=== PATIENT | male | born 1960 | race African-American/Black ===

== ENCOUNTER 2024-03-01 12:58 | Inpatient (IN) | payer OTHER ==
[2024-03-01 13:56] VITALS: BMI 32.5
[2024-03-01] MEDS ORDERED: LOPERAMIDE HCL 2 MG CAPSULE PO PRN (14:12)
[2024-03-01] MEDS ORDERED: ACETAMINOPHEN 325 MG TABLET (FP) PO PRN (14:12)
[2024-03-01] MEDS ORDERED: NICOTINE POLACRILEX 2 MG LOZENGE BC PRN (14:12)
[2024-03-01] MEDS ORDERED: BENZONATATE 200 MG CAPSULE PO PRN (14:12)
[2024-03-01] MEDS ORDERED: NICOTINE POLACRILEX 2 MG GUM BUC PRN (14:12)
[2024-03-01] MEDS ORDERED: MAG HYDROX/AL HYDROX/SIMETH 30 ML UNIT-DOSE CUP PO PRN (14:12)
[2024-03-01] MEDS ORDERED: IBUPROFEN 400 MG TABLET (FP) PO PRN (14:12)
[2024-03-01] MEDS ORDERED: MAGNESIUM HYDROX 2400MG/30ML ORAL SUSPENSION 30 ML CUP PO PRN (14:12)
[2024-03-01] MEDS ORDERED: IBUPROFEN 600 MG TABLET (FP) PO PRN (14:12)
[2024-03-01] MEDS ORDERED: BENZOCAINE/MENTHOL (CHLORASEPTIC ) LOZENGE MM PRN (14:12)
[2024-03-01] MEDS ORDERED: guaiFENesin 600 MG TABLET.ER (FP) PO PRN (14:12)
[2024-03-01] MEDS ORDERED: POLYETHYLENE GLYCOL (HEALTHYLAX) 3350 17 GM PACKET PO PRN (14:12)
[2024-03-01] MEDS: TUBERCULIN PPD 5 TU/0.1ML SYRINGE (IN PATIENT USE ONLY) ID ONE (18:16)
[2024-03-01 22:39] LABS: EPI CELLS 2 /uL (0-25.1); HYALINE CASTS 0 /uL (0-3.1); PH,URINE 5.5 (5.0-8.0); URINE APPEARANCE CLEAR; URINE BACTERIA 0 /uL (0-1359); URINE BILIRUBIN NEGATIVE (NEGATIVE); URINE COLOR YELLOW; URINE GLUCOSE (UA) NEGATIVE (NEGATIVE); URINE KETONE NEGATIVE (NEGATIVE); URINE LEUK ESTERASE NEGATIVE (NEGATIVE); URINE NITRITE NEGATIVE (NEGATIVE); URINE PROTEIN 1+ (NEGATIVE); URINE RBC 4 /uL (0-23.9); URINE UROBILINOGEN 0.2 mg/dL (0.2-1.0); URINE WBC 3 /uL (0-25.8)
[2024-03-01] MEDS: MELATONIN 5 MG TABLETS PO SCH (23:00)
[2024-03-01] MEDS: THIAMINE 100 MG TABLET PO SCH (23:00)
[2024-03-02 07:55] LABS: CHLORIDE 104 mmol/L (98-107); POTASSIUM 4.3 mmol/L (3.5-5.1); SODIUM 139 mmol/L (136-145)
[2024-03-02 07:58] LABS: ALBUMIN 4.1 g/dl (3.4-5.0); ANION GAP 6 mmol/L (4-13); CO2 29 mmol/L (21-32); GLUCOSE,RANDOM 94 mg/dL (74-106)
[2024-03-02 07:59] LABS: BLOOD UREA NITROGEN 11.7 mg/dL (7-18)
[2024-03-02 08:01] LABS: SGPT/ALT 41 U/L (13-61)
[2024-03-02 08:02] LABS: CREATININE 0.9 mg/dL (0.55-1.3); SGOT/AST 42 U/L (15-37)
[2024-03-02 08:03] LABS: BILIRUBIN,TOTAL 2.2 mg/dL (0.2-1); TOT PROT 7.5 g/dl (6.4-8.2)
[2024-03-02 08:04] LABS: ALK PHOS 73 U/L (45-117)
[2024-03-02 08:16] LABS: HEMATOCRIT 40.8 % (35.4-49); HEMOGLOBIN 13.7 GM/dL (11.7-16.9); MCH 21.3 pg (25.7-33.7); MCHC 33.6 g/dl (32.0-35.9); MEAN CELL VOLUME 63.4 fl (80-96); MEAN PLT VOLUME 8.1 fl (7.5-11.1); PLATELET COUNT 105 10^3/uL (134-434); RBC 6.44 M/mm3 (4.00-5.60); RDW 16.1 % (11.9-15.9); WHITE BLOOD COUNT 4.7 K/mm3 (4.0-10.0)
[2024-03-02] MEDS: PRENATAL VITAMINS W/ FOLIC ACID TABLET (FP) PO SCH (09:38)
[2024-03-12] MEDS: P-EPHED 60MG/TRIPROLIDI 2.5MG TABLET PO PRN (21:29)
[2024-03-14] MEDS: FERROUS SO4 325 MG TABLET (FP) PO SCH (10:46)
[2024-03-15] MEDS: DOCUSATE SODIUM 100 MG CAPSULE (FP) PO PRN (10:14)
[2024-03-15] MEDS: CYANOCOBALAMIN (VITAMIN B-12) 100 MCG TABLET PO SCH (14:26)
[2024-03-16 07:07] VITALS: RESP 18
[2024-03-17 07:07] VITALS: BP 122/74; PULSE 68; TEMP 97.5
== END 2024-03-17 09:23 | disposition home or self-care (01) | DRG 772 ==
LOC: YASAS 12:58 → Y3NR 14:55 → Y5N 03-03 13:18 → Y3NR 03-04 19:43 → Y3W 03-10 15:32
PROVIDERS: ADMIT Allergy & Immunology; ATTEND Psychiatry & Neurology Pain Medicine
PROC: HZ42ZZZ Group Counseling for Substance Abuse Treatment, Cognitive-Behavioral (ICD-10-PCS; principal; 2024-03-01)
DX: F14.20 Cocaine dependence, uncomplicated (principal); F10.10 Alcohol abuse, uncomplicated; F17.210 Nicotine dependence, cigarettes, uncomplicated; D57.3 Sickle-cell trait; D86.9 Sarcoidosis, unspecified; E61.1 Iron deficiency; Z20.822 Contact with and (suspected) exposure to COVID-19; Z56.0 Unemployment, unspecified; Z59.00 Homelessness unspecified
CPT/HCPCS: 0241U-QW; 36415; 80053; 80305; 80307; 81003; 85027; 86780; 87635; 87811; 93005; 93010

== ENCOUNTER 2024-09-01 13:20 | Inpatient (IN) | payer OTHER ==
[2024-09-01 14:07] VITALS: BMI 31.9
[2024-09-01] MEDS ORDERED: NALOXONE (NARCAN) HCL 4 MG/0.1 ML SPRAY NS PRN (14:31)
[2024-09-01] MEDS ORDERED: IBUPROFEN 400 MG TABLET (FP) PO PRN (14:31)
[2024-09-01] MEDS ORDERED: IBUPROFEN 600 MG TABLET (FP) PO PRN (14:31)
[2024-09-01] MEDS ORDERED: BENZOCAINE/MENTHOL (CHLORASEPTIC ) LOZENGE MM PRN (14:31)
[2024-09-01] MEDS ORDERED: MAGNESIUM HYDROX 2400MG/30ML ORAL SUSPENSION 30 ML CUP PO PRN (14:31)
[2024-09-01] MEDS ORDERED: LOPERAMIDE HCL 2 MG CAPSULE PO PRN (14:31)
[2024-09-01] MEDS ORDERED: guaiFENesin 600 MG TABLET.ER (FP) PO PRN (14:31)
[2024-09-01] MEDS ORDERED: MAG HYDROX/AL HYDROX/SIMETH 30 ML UNIT-DOSE CUP PO PRN (14:31)
[2024-09-01] MEDS ORDERED: hydrOXYzine PAMOATE 25 MG CAPSULE (FP) PO PRN (14:31)
[2024-09-01] MEDS ORDERED: BENZONATATE 200 MG CAPSULE PO PRN (14:31)
[2024-09-01] MEDS ORDERED: ACETAMINOPHEN 325 MG TABLET (FP) PO PRN (14:31)
[2024-09-01] MEDS ORDERED: POLYETHYLENE GLYCOL (HEALTHYLAX) 3350 17 GM PACKET PO PRN (14:31)
[2024-09-01] MEDS: NALTREXONE HCL 50 MG TABLET PO ONE (17:38)
[2024-09-01] MEDS: MELATONIN 5 MG TABLETS PO SCH (21:39)
[2024-09-01] MEDS: THIAMINE 100 MG TABLET PO SCH (21:39)
[2024-09-02 08:39] LABS: PH,URINE 5.5 (5.0-8.0); URINE APPEARANCE CLEAR; URINE BILIRUBIN NEGATIVE (NEGATIVE); URINE COLOR YELLOW; URINE GLUCOSE (UA) NEGATIVE (NEGATIVE); URINE KETONE NEGATIVE (NEGATIVE); URINE LEUK ESTERASE NEGATIVE (NEGATIVE); URINE NITRITE NEGATIVE (NEGATIVE); URINE PROTEIN TRACE (NEGATIVE)
[2024-09-02] MEDS: NALTREXONE HCL 50 MG TABLET PO SCH (10:20)
[2024-09-02] MEDS: PRENATAL VITAMINS W/ FOLIC ACID TABLET (FP) PO SCH (10:20)
[2024-09-02 11:05] LABS: HEMATOCRIT 41.3 % (35.4-49); HEMOGLOBIN 13.3 GM/dL (11.7-16.9); MCH 21.7 pg (25.7-33.7); MCHC 32.2 g/dl (32.0-35.9); MEAN CELL VOLUME 67.5 fl (80-96); MEAN PLT VOLUME 8.9 fl (7.5-11.1); PLATELET COUNT 127 10^3/uL (134-434); RBC 6.12 M/mm3 (4.00-5.60); RDW 16.2 % (11.9-15.9); WHITE BLOOD COUNT 4.8 K/mm3 (4.0-10.0)
[2024-09-02 11:08] LABS: CHLORIDE 107 mmol/L (98-107); POTASSIUM 3.8 mmol/L (3.5-5.1); SODIUM 138 mmol/L (136-145)
[2024-09-02 11:11] LABS: ANION GAP 3 mmol/L (4-13); BLOOD UREA NITROGEN 14.6 mg/dL (7-18); CO2 28 mmol/L (21-32); GLUCOSE,RANDOM 115 mg/dL (74-106)
[2024-09-02 11:13] LABS: CALCIUM 8.5 mg/dL (8.5-10.1)
[2024-09-02 11:14] LABS: ALBUMIN 3.2 g/dl (3.4-5.0)
[2024-09-02 11:17] LABS: CREATININE 1.1 mg/dL (0.55-1.3)
[2024-09-02 11:18] LABS: SGPT/ALT 16 U/L (13-61)
[2024-09-02 11:19] LABS: BILIRUBIN,TOTAL 0.6 mg/dL (0.2-1); TOT PROT 6.2 g/dl (6.4-8.2)
[2024-09-02 11:21] LABS: ALK PHOS 92 U/L (45-117)
[2024-09-02 11:34] LABS: SGOT/AST 14 U/L (15-37)
[2024-09-02 15:47] LABS: SYPHILIS W/ RPR CONF NON-REACTIVE (NONREACTIVE)
[2024-09-09] MEDS: metroNIDAZOLE 250 MG TABLET PO ONE (15:48)
[2024-09-10 12:09] LABS: HIV INTERPRETATION NEGATIVE (NEGATIVE)
[2024-09-10] MEDS: DOXYCYCLINE HYCLATE 100 MG TABLET PO SCH (18:12)
[2024-09-15 06:00] VITALS: TEMP 97.1
[2024-09-15] MEDS ORDERED: MELATONIN 5 MG TABLETS PO PRN (11:29)
[2024-09-16 05:35] VITALS: BP 139/78; PULSE 61; RESP 16
== END 2024-09-16 12:43 | disposition home or self-care (01) | DRG 772 ==
LOC: YASAS 13:20 → Y3W 15:27
PROVIDERS: ADMIT Psychiatry & Neurology Pain Medicine; ATTEND Psychiatry & Neurology Pain Medicine
PROC: HZ42ZZZ Group Counseling for Substance Abuse Treatment, Cognitive-Behavioral (ICD-10-PCS; principal; 2024-09-01)
DX: F14.20 Cocaine dependence, uncomplicated (principal); F10.20 Alcohol dependence, uncomplicated; F17.210 Nicotine dependence, cigarettes, uncomplicated; A74.89 Other chlamydial diseases; Z86.19 Personal history of other infectious and parasitic diseases; Z86.11 Personal history of tuberculosis
CPT/HCPCS: 36415; 80053; 80305; 80307; 81003; 85027; 86780; 86803; 87086; 87389; 87491; 87591; 87661; 87811; 93005; 93010